=== PATIENT | female | born 1960 | race Caucasian/White ===

== ENCOUNTER 2020-05-01 16:28 | Emergency (ER) | payer OTHER | END 2020-05-01 20:55 | disposition home or self-care (01) | LOC: FER 16:28 | DX: S93.402A Sprain of unspecified ligament of left ankle, initial encounter (principal); S93.602A Unspecified sprain of left foot, initial encounter; S93.05XA Dislocation of left ankle joint, initial encounter; E11.9 Type 2 diabetes mellitus without complications; Z88.8 Allergy status to other drugs, medicaments and biological substances; W18.40XA Slipping, tripping and stumbling without falling, unspecified, initial encounter; Y92.009 Unspecified place in unspecified non-institutional (private) residence as the place of occurrence of the external cause | CPT/HCPCS: 73610; 73700 ==

== ENCOUNTER 2020-06-01 19:09 | Emergency (ER) | payer MEDICARE ==
[2020-06-01 19:42] LABS: BASOPHIL 0.5 % (0-2); EOSINOPHIL 0.5 % (0-5); HCT 43.7 % (37.0-47.0); HGB 14.9 g/dl (12.5-16.0); LYMPHOCYTE 12.3 % (15-48); MCH 29.5 pg (25.0-31.0); MCHC 34.1 g/dL (32.0-36.0); MCV 86.5 fL (78.0-100.0); MONOCYTE 6.6 % (0-12); MPV 9.9 fL (6.0-9.5); NRBC 0; PLT 332 K/uL (150-400); RBC 5.05 M/uL (4.20-5.40); RDW 14.4 % (11.5-14.0); WBC 7.6 K/uL (4.0-10.5)
[2020-06-01 20:05] LABS: BILIRUBIN NEGATIVE (NEGATIVE); BLOOD NEGATIVE Ery/uL (NEGATIVE); CLARITY CLEAR (CLEAR); COLOR YELLOW (YELLOW); GLUCOSE (U) 1+ mg/dL (NORMAL); LEUKOCYTES 1+ Leu/uL (NEGATIVE); NITRITE NEGATIVE (NEGATIVE); PROTEIN NEGATIVE (NEGATIVE); UROBILINOGEN 0.2 mg/dL (0.2-1.0)
[2020-06-01 20:10] LABS: AMPHETAMINES NEGATIVE (NEGATIVE); BARBITURATES NEGATIVE (NEGATIVE); ECSTASY (MDMA) NEGATIVE (NEGATIVE); MARIJUANA (THC) NEGATIVE (NEGATIVE); METHADONE NEGATIVE (NEGATIVE); OPIATES NEGATIVE (NEGATIVE); OXYCODONE NEGATIVE (NEGATIVE)
[2020-06-01 20:13] LABS: ALBUMIN 3.7 g/dL (3.4-5.0); BILIRUBIN - TOTAL 0.5 mg/dL (0.2-1.0); BUN/CREAT RATIO (CALC) 32.2 RATIO; CREATININE 0.59 mg/dL (0.51-0.95); GLOBULIN (CALCULATION) 3.5 g/dL; POTASSIUM 4.5 mmol/L (3.5-5.1); TOTAL PROTEIN 7.2 g/dL (6.4-8.2)
[2020-06-01 20:14] LABS: BACTERIA 1+
[2020-06-01 20:22] LABS: PRO-BNP 87 pg/mL (<125)
== END 2020-06-02 02:34 | disposition other institution (70) ==
LOC: FER 19:09
PROVIDERS: Student in an Organized Health Care Education/Training Program
DX: G91.1 Obstructive hydrocephalus (principal); I10 Essential (primary) hypertension; E11.9 Type 2 diabetes mellitus without complications; Z88.8 Allergy status to other drugs, medicaments and biological substances; Z86.69 Personal history of other diseases of the nervous system and sense organs
CPT/HCPCS: 36415; 70450; 71045; 80053; 80305; 81001; 83880; 84484; 85025; 93005